=== PATIENT | male | born 1940 | race Caucasian/White ===

== ENCOUNTER → 2023-09-26 09:00 | Outpatient (REF) | payer MEDICARE, SELFPAY | LOC: HWRAD 09:00 | PROVIDERS: ATTENDING PHYSICIAN Internal Medicine | DX: M25.572 Pain in left ankle and joints of left foot (principal) | CPT/HCPCS: 73610 ==

== ENCOUNTER → 2023-10-22 07:55 | Outpatient (REF) | payer MEDICARE, SELFPAY | LOC: HWRAD 07:55 | PROVIDERS: ATTENDING PHYSICIAN Specialist; FAMILY PHYSICIAN Internal Medicine | DX: N20.0 Calculus of kidney (principal) | CPT/HCPCS: 74018 ==

== ENCOUNTER → 2023-11-21 10:32 | Outpatient (REF) | payer MEDICARE, SELFPAY | LOC: HWRAD 10:32 | PROVIDERS: ATTENDING PHYSICIAN Internal Medicine | DX: M48.062 Spinal stenosis, lumbar region with neurogenic claudication (principal) | CPT/HCPCS: 72110 ==

== ENCOUNTER → 2024-01-23 07:19 | Outpatient (REF) | payer MEDICARE, SELFPAY ==
[2024-01-23 09:08] LABS: % Basophils 0.9 % (0-2); % Eosinophils 2.2 % (0-6); % Immature Granulocytes 0.2 % (0-0.5); % Lymphocytes 20.4 % (20.5-51.1); % Monocytes 8.8 % (1.7-9.3); % Neutrophils 67.5 % (42.2-75.2); Absolute Basophils 0.1 10^3/uL (0-0.2); Absolute Eosinophils 0.1 10^3/uL (0-0.7); Absolute Lymphocytes 1.1 10^3/uL (1.2-3.4); Absolute Monocytes 0.5 10^3/uL (0.1-0.6); Absolute Neutrophils 3.8 10^3/uL (1.4-6.5); Hematocrit 42.6 % (39.0-52.0); Hemoglobin 13.7 g/dL (13.0-18.0); Mean Corp Hgb Conc. 32.2 g/dL (33.0-37.0); Mean Corpuscular Hgb 30.2 pg (27.0-31.0); Mean Corpuscular Volume 93.8 fL (80.0-94.0); Mean Platelet Volume 8.8 fL (7.4-10.4); Nucleated Red Blood Cells % 0 % (-); Platelet Count 188 10^3/uL (130-400); Red Blood Cell Count 4.54 10^6/uL (4.70-6.10); Red Cell Dist. Width 13.5 % (11.5-14.5); White Blood Cell Count 5.6 10^3/uL (4.8-10.8)
[2024-01-23 09:34] LABS: Glycohemoglobin (HgbA1c) 7.3 % (4.0-5.6)
[2024-01-23 10:49] LABS: ALT (SGPT) 17 U/L (0-50); AST (SGOT) 20 U/L (17-59); Albumin 3.5 g/dl (3.5-5.0); Alkaline Phosphatase 107 U/L (38-126); Blood Urea Nitrogen 18 mg/dl (9-20); Calcium 9.1 mg/dl (8.4-10.2); Carbon Dioxide 28 mmol/L (22-30); Chloride 103 mmol/L (98-107); Glucose 141 mg/dl (70-99); HDL Cholesterol 56 mg/dl; LDL Cholesterol, Calculated 62 mg/dl; Potassium 4.2 mmol/L (3.5-5.1); Sodium 136 mmol/L (135-145); Total Bilirubin 0.7 mg/dl (0.2-1.3); Total Cholesterol 128 mg/dl (50-199); Triglyceride 51 mg/dl (10-149); Very Low Density Lipoprotein 10 mg/dl (0-30); eGFR > 60.00
[2024-01-23 11:33] LABS: Microalbumin, Random Urine 0.8 mg/dl (0.6-1.7); Microalbumin/creatinine Ratio 4.4 mg/g
== END ==
LOC: HWLAB 07:19
PROVIDERS: ATTENDING PHYSICIAN Internal Medicine
DX: E11.9 Type 2 diabetes mellitus without complications (principal); E78.5 Hyperlipidemia, unspecified; K21.9 Gastro-esophageal reflux disease without esophagitis
CPT/HCPCS: 36415; 80053; 80061; 82043; 82570; 83036; 85025

== ENCOUNTER → 2024-05-20 09:43 | Outpatient (REF) | payer MEDICARE, SELFPAY ==
[2024-05-20 11:53] LABS: % Basophils 0.9 % (0-2); % Eosinophils 1.7 % (0-6); % Immature Granulocytes 0.3 % (0-0.5); % Lymphocytes 14.6 % (20.5-51.1); % Monocytes 9.9 % (1.7-9.3); % Neutrophils 72.6 % (42.2-75.2); Absolute Basophils 0.1 10^3/uL (0-0.2); Absolute Eosinophils 0.1 10^3/uL (0-0.7); Absolute Monocytes 0.7 10^3/uL (0.1-0.6); Absolute Neutrophils 4.8 10^3/uL (1.4-6.5); Hematocrit 42.7 % (39.0-52.0); Hemoglobin 14.4 g/dL (13.0-18.0); Mean Corp Hgb Conc. 33.7 g/dL (33.0-37.0); Mean Corpuscular Hgb 31.3 pg (27.0-31.0); Mean Corpuscular Volume 92.8 fL (80.0-94.0); Mean Platelet Volume 9.1 fL (7.4-10.4); Nucleated Red Blood Cells % 0 % (-); Platelet Count 202 10^3/uL (130-400); Red Cell Dist. Width 12.8 % (11.5-14.5); White Blood Cell Count 6.6 10^3/uL (4.8-10.8)
[2024-05-20 13:01] LABS: TSH Reflex To Free T4 2.12 uIU/ml (0.47-4.68)
== END ==
LOC: HWLAB 09:43
PROVIDERS: ATTENDING PHYSICIAN Internal Medicine
DX: R53.83 Other fatigue (principal)
CPT/HCPCS: 36415; 84443; 85025

== ENCOUNTER → 2024-07-14 06:49 | Outpatient (REF) | payer MEDICARE, SELFPAY ==
[2024-07-14 10:20] LABS: ALT (SGPT) 25 U/L (0-50); AST (SGOT) 25 U/L (17-59); Alkaline Phosphatase 103 U/L (38-126); Blood Urea Nitrogen 18 mg/dl (9-20); Calcium 9.4 mg/dl (8.4-10.2); Carbon Dioxide 29 mmol/L (22-30); Chloride 100 mmol/L (98-107); Glucose 163 mg/dl (70-99); HDL Cholesterol 65 mg/dl; LDL Cholesterol, Calculated 66 mg/dl; Potassium 4.7 mmol/L (3.5-5.1); Sodium 139 mmol/L (135-145); Total Bilirubin 0.7 mg/dl (0.2-1.3); Total Cholesterol 143 mg/dl (50-199); Total Protein 6.5 g/dl (6.3-8.2); Triglyceride 62 mg/dl (10-149); Very Low Density Lipoprotein 12 mg/dl (0-30); eGFR > 60.00
[2024-07-14 10:33] LABS: Glycohemoglobin (HgbA1c) 7.4 % (4.0-5.6)
== END ==
LOC: HWLAB 06:49
PROVIDERS: ATTENDING PHYSICIAN Internal Medicine
DX: E11.9 Type 2 diabetes mellitus without complications (principal); E78.5 Hyperlipidemia, unspecified
CPT/HCPCS: 36415; 80053; 80061; 83036

== ENCOUNTER → 2024-09-29 10:28 | Outpatient (REF) | payer MEDICARE, SELFPAY | LOC: HWRAD 10:28 | PROVIDERS: ATTENDING PHYSICIAN Specialist; FAMILY PHYSICIAN Internal Medicine | DX: N20.0 Calculus of kidney (principal) | CPT/HCPCS: 74018 ==

== ENCOUNTER → 2024-11-12 11:10 | Outpatient (REF) | payer MEDICARE, SELFPAY | LOC: HWRAD 11:10 | PROVIDERS: ATTENDING PHYSICIAN Family Medicine | DX: J41.1 Mucopurulent chronic bronchitis (principal) | CPT/HCPCS: 71046 ==

== ENCOUNTER → 2025-01-21 07:00 | Outpatient (REF) | payer MEDICARE, SELFPAY ==
[2025-01-21 09:32] LABS: % Basophils 1.1 % (0-2); % Eosinophils 3.4 % (0-6); % Immature Granulocytes 0.2 % (0-0.5); % Lymphocytes 19.9 % (20.5-51.1); % Monocytes 10.1 % (1.7-9.3); % Neutrophils 65.3 % (42.2-75.2); Absolute Basophils 0.1 10^3/uL (0-0.2); Absolute Eosinophils 0.2 10^3/uL (0-0.7); Absolute Lymphocytes 1.1 10^3/uL (1.2-3.4); Absolute Monocytes 0.6 10^3/uL (0.1-0.6); Absolute Neutrophils 3.7 10^3/uL (1.4-6.5); Hematocrit 43.7 % (39.0-52.0); Hemoglobin 14.3 g/dL (13.0-18.0); Mean Corp Hgb Conc. 32.7 g/dL (33.0-37.0); Mean Corpuscular Hgb 30.5 pg (27.0-31.0); Mean Corpuscular Volume 93.2 fL (80.0-94.0); Mean Platelet Volume 8.9 fL (7.4-10.4); Nucleated Red Blood Cells % 0 % (-); Platelet Count 192 10^3/uL (130-400); Red Blood Cell Count 4.69 10^6/uL (4.70-6.10); Red Cell Dist. Width 13.2 % (11.5-14.5); White Blood Cell Count 5.6 10^3/uL (4.8-10.8)
[2025-01-21 10:09] LABS: ALT (SGPT) 21 U/L (0-50); AST (SGOT) 20 U/L (17-59); Albumin 3.9 g/dl (3.5-5.0); Alkaline Phosphatase 105 U/L (38-126); Blood Urea Nitrogen 11 mg/dl (9-20); Calcium 9.3 mg/dl (8.4-10.2); Carbon Dioxide 29 mmol/L (22-30); Chloride 106 mmol/L (98-107); Glucose 170 mg/dl (70-99); HDL Cholesterol 59 mg/dl; LDL Cholesterol, Calculated 58 mg/dl; Potassium 4.6 mmol/L (3.5-5.1); Sodium 137 mmol/L (135-145); Total Bilirubin 0.7 mg/dl (0.2-1.3); Total Cholesterol 130 mg/dl (50-199); Total Protein 6.3 g/dl (6.3-8.2); Triglyceride 66 mg/dl (10-149); Very Low Density Lipoprotein 13 mg/dl (0-30); eGFR > 60.00
[2025-01-21 10:09] LABS: Glycohemoglobin (HgbA1c) 7.4 % (4.0-5.6)
[2025-01-21 10:42] LABS: Microalbumin, Random Urine 1.1 mg/dl (0.6-1.7); Microalbumin/creatinine Ratio 9.5 mg/g
== END ==
LOC: HWLAB 07:00
PROVIDERS: ATTENDING PHYSICIAN Internal Medicine
DX: E78.5 Hyperlipidemia, unspecified (principal); K21.9 Gastro-esophageal reflux disease without esophagitis; E11.9 Type 2 diabetes mellitus without complications
CPT/HCPCS: 36415; 80053; 80061; 82043; 82570; 83036; 85025

== ENCOUNTER → 2025-01-23 07:47 | Outpatient (REF) | payer MEDICARE, SELFPAY | LOC: RCS 07:47 | PROVIDERS: ATTENDING PHYSICIAN Student in an Organized Health Care Education/Training Program; FAMILY PHYSICIAN Internal Medicine | DX: I10 Essential (primary) hypertension (principal); R00.2 Palpitations | CPT/HCPCS: 93225; 93226 ==

== ENCOUNTER 2025-07-06 11:21 | Inpatient (IN) | payer MEDICARE, SELFPAY ==
[2025-07-06] VITALS (12 sets, daily range): BP systolic 81–177; BP diastolic 54–98; BMI 30.4
--- NOTE | 2025-07-06 10:20 | ED.GENMED ---
History of Present Illness
General
Chief Complaint: Chest Pain
Source: patient and spouse
Exam Limitations: none
Time Seen by Provider: 07/06/25 10:20
Nursing documentation reviewed up to this point in time: agreed with
History of Present Illness
History of Present Illness:
Note:
CHIEF COMPLAINT(S)
Chest pain.
HISTORY OF PRESENT ILLNESS
The patient is an 84-year-old male who presents with chest pain. The patient reports that the chest pain began suddenly. The exact activity during the onset of the pain was not specified. The patient denies the presence of pain at the time of the
evaluation. The chest pain does not radiate to the jaw, arm, or back and is not associated with sweating. The patient is uncertain if the pain worsens with physical activity. Currently, the patient is not taking aspirin and reports no current
medication usage. The patient sees a public defender but did not specify the reason for the follow-up or any heart conditions diagnosed.
MEDICATIONS
The patient mentioned being prescribed Carvedilol but did not confirm current usage.
PHYSICAL EXAM
General: Alert, no acute distress.
Skin: Warm, dry.
Head: Normocephalic, atraumatic.
Neck: Supple, trachea midline.
Eyes, Ears, Nose, Mouth, and Throat: Oral mucosa moist.
Cardiovascular: Normal peripheral perfusion, No edema.
Respiratory: Respirations are non-labored.
Gastrointestinal: Abdomen nondistended.
Back: Normal range of motion, Normal alignment.
Musculoskeletal: Normal ROM, normal strength.
Neurological: Alert and oriented to person, place, time, and situation, No focal neurological deficit observed.
Psychiatric: Cooperative, appropriate mood & affect.
PLAN
The plan includes administering aspirin as an initial treatment step.
DIFFERENTIAL DIAGNOSIS
The Differential Diagnosis includes, in no particular order and is not limited to:
1. Angina pectoris
2. Myocardial infarction
3. Gastroesophageal reflux disease
4. Pulmonary embolism
5. Costochondritis
6. Aortic dissection
7. Pericarditis
8. Pneumothorax
9. Anxiety-related chest pain
10. Musculoskeletal pain
EKG
My independent EKG interpretation is:
- Time of EK:05 a.m.
- Rhythm: Sinus tachycardia
- Heart Rate: 104 bpm
- ST segment changes: ST elevation in inferior leads
CARE-UPDATE
07/06/25 - 14:20
Patient was immediately alerted based on EKG findings and brought back to room 41. Administered aspirin, Brilinta, and heparin. Dr. Flores assessed the patient en route to the [facility]; pacer pads were applied.
Disposition:
SUMMARY OF ENCOUNTER
The patient, an 84-year-old male, was seen in the emergency department for sudden chest pain. During the assessment, an EKG revealed ST elevation in inferior leads, prompting the suspicion of an inferior myocardial infarction (KS). The patient was
immediately managed with antiplatelet and anticoagulant therapy. Given the high risk of myocardial infarction, a decision was made to admit the patient for emergent transfer to the cardiac catheterization lab for further intervention.
DISPOSITION
Admit to cardiac catheterization lab.
ASSESSMENT
- Suspected inferior myocardial infarction based on clinical presentation and EKG findings.
EMERGENCY TREATMENTS ADMINISTERED
- Aspirin
- Heparin
- Ticagrelor (Brilinta)
PLAN
The patient will be taken emergently to the [facility] for angiography and potential intervention.
INDEPENDENT REVIEW OF LABS AND INTERPRETATION OF TESTS
My independent EKG interpretation is sinus tachycardia with a heart rate of [address] elevation in the inferior leads.
MEDICAL DECISION MAKING
- Number and Complexity of Problems Addressed: Chronic conditions affecting care include potential coronary artery disease. Differential diagnosis includes angina pectoris, myocardial infarction, pulmonary embolism, aortic dissection, and
musculoskeletal pain among others.
- Data:
Category 1
My independent interpretation of the EKG revealed ST elevation in the inferior leads.
- Risk:
Antiplatelet and anticoagulation therapy were administrated due to high suspicion of myocardial infarction, indicating a risk of major adverse cardiovascular events.
DIAGNOSIS
- Inferior myocardial infarction (I21.19)
Past History
Past History
ED Past Medical History: Other (Diet controlled diabetes)
Social History
Tobacco: Former smoker
Alcohol: Occasional
Family History
Family History: Other (Father with a stroke)
Phy Exam
Physical Exam
Physical Exam:
.
Scores
Heart Score for Chest Pain Patients
STEMI patient?: Yes
Course
Orders/Labs/Results
Orders:
Orders
07/06/25 Lunch
1800 calorie (15 carb) Diabetic
At Your Request: Full Participation
Does patient need a safe tray?: No
07/06/25 10:02
EKG [Electrocardiogram (*1)] Urgent
Reason for Study: Chest Pain
07/06/25 10:03
EKG- Treatment ONCE
07/06/25 10:15
Complete Blood Count/With Diff Urgent
Comprehensive Metabolic Panel Urgent
INR [Prothrombin Time] Urgent
PTT Urgent
Troponin I Urgent
07/06/25 10:19
Ticagrelor [Brilinta] 180 mg .ROUTE .STK-MED ONE
07/06/25 10:20
Aspirin Chewable [Low Strength Aspirin] 324 mg .ROUTE .STK-MED ONE
Heparin 5,000 units .ROUTE .STK-MED ONE
07/06/25 11:03
Admit Patient As Directed
Co-Sign Provider:
Level of Care: Inpatient admission
Assign to:: IVU
Physician / Group: yogesh/mark
Diagnosis: inferior stemi
Reason for Hospitalization: cardiac cath
Expected length of stay greater than two midnights?: Yes
ELOS- Estimated Length of Stay in days: 2
I certify the patient meets the requirements for IP care: Yes
Code Status As Directed
Resuscitation Status: Full Code
VTE Contraindication Routine
VTE Mechanical Device Contraindication: Low Risk- LOS < 2 days
Pharmocologic Contraindication: Medical Contraindication
Risk assessment completed and pt is low risk: Yes
Acetaminophen [Tylenol] 650 mg PO Q4HPRN PRN
Activity As Directed
Activity Level: Out of Bed- Ad Rae
Activity Frequency: Ad Rae
[facility] Procedure As Directed
Cardiac Cath Procedure: cardiac catheterization
Notify MD As Directed
Notify physician if: immediately for chest pain or bleeding from access site(s)
Radial Artery Hemostasis Method As Directed
Instructions:: 3 mL out at 1 hour post placement of band
3 mL out at 1 1/2 hours post placement of band
3 mL out at 2 hours post placement of band
Off at 2 1/2 hours post placement of band
If any oozing or hemotoma occurs:: re-inflate band and call provider
Site Checks As Directed
Check access site for bleeding/hematoma: Yes
Comment: on arrival, Q15min x4, Q30min x2, Q1 hr x2, Q2 hr x2, Q4 hr or per
protocol
Vascular Checks As Directed
Location: distal to access site - pulse check
Frequency: Other
Comment: on arrival, Q15min x4, Q30min x2, Q1 hr x2, Q2 hr x2, Q4 hr or per protocol
Vital Signs As Directed
Frequency: Other
Additional Instructions:: on arrival, Q15min x4, Q30min x2, Q1 hr x2, Q2 hr x2, then Q4 hr or per unit
protocol
PRN Pain Medication Management As Directed
May give lesser potent ordered pain med per pt: Yes
preference::
Protocol:: Medication orders for pain may be administered in a
manner that supports deferring to patient preference
when the pt is:
- Requesting an ordered lesser potent pain medication.
Least to most potent pain medications are defined
as: acetaminophen < NSAID < tramadol < opioids
(morphine, oxycodone, hydromorphone).
- Requesting a lesser dose of the same medication IF
ORDERED.
- Requesting a less intrusive route of administration
if both routes are prescribed by the provider (PO <
IV).
07/06/25 11:05
Dextrose 50%-Water [Dextrose 50% Syringe] 12.5 grams IV [id number] PRN
Glucagon [GlucaGen] 1 mg IM PRN PRN
Bedside Glucose Monitoring As Directed
Frequency: AC&HS
Additional Instructions:: Change to q6h if pt on TPN, tube feeding or not eating
07/06/25 11:06
Heparin Protocol- PTT Orders As Directed
PTT per Heparin protocol: -Obtain CBC and baseline PTT - if not already collected.
-Obtain PTT 6 hours from start of infusion. Then, every 6 hours until 2 consecutive
PTT's are therapeutic. Then, PTT Daily.
-With each rate change, obtain PTT every 6 hours until 2 consecutive PTT's are
therapeutic. Then, PTT Daily.
Notify MD As Directed
Notify physician if: PTT is greater than or equal to 200.
07/06/25 11:15
0.9% Sodium Chloride 1000 ml [Nss] 1,000 ml IV PER PROTOCOL
Infusion rate in mL/kg/hr:: 1.5
Infusion rate in mL/hr:: 161
Duration of infusion (hours):: 3
Heparin 29013 Units/250 ml 25,000 units in 250 ml IV PER PROTOCOL
Weight to be used for heparin protocol in kilograms (kg):: 107.3
Protocol:: Cardiac Tx/Acute Coronary
PTT Goal Range to be used:: PTT 73 to 111 seconds
Order type:: Initial
INITIAL Infusion Dose (UNITS/KG/hr) & then follow protocol:: 12 units/kg/hr
Infusion Dose in UNITS/hr & then follow protocol (UNITS/hr):: 1,000
INFUSION RATE in mL/hr & then follow protocol (mL/hr):: 10
PTT less than or equal to 64 seconds:: Increase rate by 200 units/hr (+ 2 mL/hr)
PTT 64.1 to 72.9 seconds:: Increase rate by 100 units/hr (+ 1 mL/hr)
PTT 73 to 111 seconds:: Target Range. No change in rate.
PTT 111.1 to 130.9 seconds:: Decrease rate by 100 units/hr (- 1 mL/hr)
PTT 131 to 199.9 seconds:: HOLD for 1 hr. Then decrease rate by 200 units/hr (- 2 mL/hr)
PTT greater than or equal to 200 seconds:: HOLD for 2 hrs & Notify Provider. Then decrease by 200 units/hr (-
2 mL/hr)
Lab follow-up:: Each change, PTT q6h until 2 consecutive are therapeutic. Then PTT
daily.
07/06/25 11:16
Electrocardiogram (*1) Urgent
Reason for Study: Other
Other Reason for Exam: Post percutaneous coronary intervention
Comment: cbc
07/06/25 11:30
Insulin Aspart Corrective Mod [Novolog Flexpen-Moderate Resistance] See Protocol SC AC
07/06/25 16:00
Troponin I Q6H
07/06/25 18:00
Atorvastatin [Lipitor] 40 mg PO QPM
07/06/25 22:00
Troponin I Q6H
Famotidine [Pepcid] 40 mg PO HS
Tamsulosin [Flomax] 0.4 mg PO HS
07/07/25 04:00
Troponin I Q6H
07/07/25 06:00
Echo 2D MMode Color/Doppler Routine
Reason for Study: Inferior STEMI
Comment: Flores
Electrocardiogram (*1) IN AM
Reason for Study: CAD
Comment: cbc
Basic Metabolic Panel IN AM
Cardiovascular Evaluation IN AM
Complete Blood Count/No Diff IN AM
Glycohemoglobin (HgbA1c) IN AM
07/07/25 08:00
Aspirin Chewable [Low Strength Aspirin] 81 mg PO DAILY
Clopidogrel Bisulfate [Plavix] 600 mg PO ONCE ONE
07/08/25 06:00
Electrocardiogram (*1) IN AM
Reason for Study: CAD
Comment: cbc
Basic Metabolic Panel IN AM
Complete Blood Count/No Diff IN AM
Complete Blood Count/No Diff Q2D
Comment: Notify MD if platelet count is <130,000 or decreases by 50% from baseline
07/08/25 08:00
Clopidogrel Bisulfate [Plavix] 75 mg PO DAILY
07/10/25 06:00
Complete Blood Count/No Diff Q2D
Comment: Notify MD if platelet count is <130,000 or decreases by 50% from baseline
07/12/25 06:00
Complete Blood Count/No Diff Q2D
Comment: Notify MD if platelet count is <130,000 or decreases by 50% from baseline
07/14/25 06:00
Complete Blood Count/No Diff Q2D
Comment: Notify MD if platelet count is <130,000 or decreases by 50% from baseline
07/16/25 06:00
Complete Blood Count/No Diff Q2D
Comment: Notify MD if platelet count is <130,000 or decreases by 50% from baseline
07/18/25 06:00
Complete Blood Count/No Diff Q2D
Comment: Notify MD if platelet count is <130,000 or decreases by 50% from baseline
07/20/25 06:00
Complete Blood Count/No Diff Q2D
Comment: Notify MD if platelet count is <130,000 or decreases by 50% from baseline
07/22/25 06:00
Complete Blood Count/No Diff Q2D
Comment: Notify MD if platelet count is <130,000 or decreases by 50% from baseline
Abnormal Lab Results
07/06/25
10:15
Absolute Neuts (auto) 7.4 H 10^3/uL
(1.4-6.5)
Absolute Lymphs (auto) 0.9 L 10^3/uL
(1.2-3.4)
Neutrophils % 84.0 H %
(42.2-75.2)
Lymphocytes % 9.7 L %
(20.5-51.1)
Sodium 134 L mmol/L
(135-145)
Glucose 197 H mg/dl
(70-99)
Troponin I 0.130 H* ng/ml
07/06/25 10:15
07/06/25 10:15
Vital Signs
Initial and Last Documented VS:
Initial Vital Signs
Temp Resp Pulse Ox
97.5 F 20 94
07/06/25 11:23 07/06/25 11:23 07/06/25 11:23
Last Documented Vital Signs
Temp Resp Pulse Ox
97.5 F 20 94
07/06/25 11:23 07/06/25 11:23 07/06/25 11:23
*Pulse Oximetry
SaO2: 95
Oxygen Mode of Delivery: Room air
Patient hypoxic: no
*Critical Care Note
Total Time (30-74mins, 75-104mins- exclusive of procedures): 10
comment:
Critical care statement: A total of 10 minutes of critical care time was provided for this patient. This includes management of unstable vital signs, evaluation of the patient at bedside, reviewing the patient's pertinent medical records, discussion
with consultants, review of old EKGs and review of pertinent medical records. This time with separate from time utilized to perform the aforementioned documented procedures
ED Attending Note
-
Portions of this chart may have been created with voice recognition software.� Occasional wrong word or��sound alike� substitutions may have occurred due to the inherent limitations of voice recognition software.
Discharge Plan
Departure
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
Date of Disposition: 07/06/25
Time of Disposition: 10:20
Admit to: [facility]
Presentation/result/management discussed w/ accepting MD/DO: Mark cardiology
Patient with high blood pressure during this ER visit?: Yes
Condition: Fair
Discharge Problem:
ST elevation (STEMI) myocardial infarction
Interventions
Interventions:
*Nursing Disposition Last Done: 07/06/25 10:33
Discharge Date and Time
Discharge Date/Time: 07/06/25 10:33
[2025-07-06 10:23] LABS: Hematocrit 44.8 % (39.0-52.0); Hemoglobin 14.8 g/dL (13.0-18.0); Mean Corp Hgb Conc. 33.0 g/dL (33.0-37.0); Mean Corpuscular Volume 90.1 fL (80.0-94.0); Nucleated Red Blood Cells % 0 % (-); Platelet Count 201 10^3/uL (130-400); Red Cell Dist. Width 13.2 % (11.5-14.5)
[2025-07-06 10:35] LABS: INR 1.00; PT 13.5 Sec (11.4-14.6)
[2025-07-06 10:36] LABS: APTT 24.2 Sec (23.4-35.0)
--- NOTE | 2025-07-06 10:37 | HPS.HSE ---
Family Physician
-
Family Physician: Ana Laura Fox MD
CDY: Toni Salazar MD
Chief Complaint
-
chest pain
History of Present Illness
84 y/o, PMH sig for HTN, HLD, DM, Atrial tachycardia/inappropriate sinus tachycardia, intolerant of beta blockers due to orthostasis/hypotension. Significant FH CAD, CVA. Former tobacco and social alcohol.
Presented to ER with intermittent chest pain for 2 days, progressively worse this morning, 04/05. EKG with inferior ST elevations. Given aspirin 324mg, ticagrelor 180mg and heparin 5000u and brought emergently to [facility]. On arrival to lab, CP had
improved to 11/03.
Medical History
Past Medical History
Past Medical History: Reports HTN, Hypercholesterolemia, NIDDM and Other (Atrial tachycardia, Inappropriate Sinus Tachycardia, BPH, Kidney stones, hydrocele, obesity)
Past Surgical History: Reports Urological (TURP 2016) and Other (Umbilical hernia repair 2017, Hydrocelectomy 2010)
Social History
Tobacco: Former Smoker
Alcohol: Occasional (2-3x/weekly)
Drug: None
Personal:
Living: With Family
Employment: Retired
Family History
Family History: CAD and Other (CVA, Alzheimers/Dementia)
Allergies / Home Medications
Allergies reflects when Allergies were last updated in [employer].
Home Medications with original date entered in [employer]
Allergy/Medication List:
Allergies
Allergy/AdvReac Type Severity Reaction Status Date / Time
hayfever Allergy coughing;eyes Uncoded 07/05/17 06:47
burn
Home Medications
�Medication �Instructions �Recorded
atorvastatin 10 mg tablet 10 mg PO DAILY 07/06/25
carvedilol 3.125 mg tablet 3.125 mg PO BID 07/06/25
famotidine 40 mg tablet 40 mg PO HS 07/06/25
fluticasone propionate 50 2 spray intranasal DAILY 07/06/25
mcg/actuation nasal
spray,suspension
metformin 500 mg tablet 500 mg PO QPM 07/06/25
tamsulosin 0.4 mg capsule 0.4 mg PO HS 07/06/25
Pt not taking carvedilol d/t hypotension, held per PCP
Review of Systems
-
History Source: Patient
A 12 point ROS was completed and negative except as noted: Yes
Cardiac: Reports Chest Pain
Physical Exam
Vital Signs
PE deferred d/t urgent nature of cath
Physical Exam
General: Well Developed
Laboratory Results
-
07/06/25 10:15
07/06/25 10:15
Laboratory Tests
07/06/25
10:15
Troponin I 0.130 H*
PT 13.5 Sec (11.4-14.6) 07/06/25 10:15
INR 1.00 07/06/25 10:15
APTT 24.2 Sec (23.4-35.0) 07/06/25 10:15
Data Reviewed
-
Medical Tests (Nuc Med, Echo, EKG etc): Image Personally Visualized and interpreted, Report Reviewed by me and Discussed with Physician
Lab Data: Labs Reviewed by me
Old Records: Reviewed
Impression/Plan
-
PCP: Ana Laura Fox MD
CDY: Toni Salazar MD
84 y/o, PMH sig for HTN, HLD, DM, Atrial tachycardia/inappropriate sinus tachycardia, intolerant of beta blockers due to orthostasis/hypotension. Significant FH CAD, CVA. Former tobacco and social alcohol.
Presented to ER with intermittent chest pain for 2 days, progressively worse this morning, 04/05. EKG with inferior ST elevations. Given aspirin 324mg, ticagrelor 180mg and heparin 5000u and brought emergently to [facility]. On arrival to lab, CP had
improved to 11/03.
IMPRESSION/PLAN:
Inferior STEMI
LHC today
1st troponin 0.13- trend to peak
echocardiogram in AM
anticipate DAPT- await cath results
cardiac rehab
followup w/Dr. Salazar at d/c
HTN- not taking carvedilol d/t orthostasis/hypotension
monitor trends
HLD- check lipid profile
increase atorvastatin to 40mg
DM- hold metformin 48h post cath
elevated glucose on chemistry today
check HgbA1C, ISS for coverage
Atrial tachycardia/Inappropriate sinus tachycardia
orthostatic hypotension r/t beta blockers- has tried metoprolol, carvedilol in the past
currently asymptomatic and not taking anything right now per PCP
monitor trends
BPH
Kidney stones
obesity
[2025-07-06 10:40] LABS: ALT (SGPT) 21 U/L (0-50); AST (SGOT) 22 U/L (17-59); Albumin 4.3 g/dl (3.5-5.0); Alkaline Phosphatase 111 U/L (38-126); Blood Urea Nitrogen 13 mg/dl (9-20); Calcium 9.2 mg/dl (8.4-10.2); Carbon Dioxide 28 mmol/L (22-30); Chloride 100 mmol/L (98-107); Estimated Creatinine Clearance 93 ml/min; Glucose 197 mg/dl (70-99); Potassium 4.3 mmol/L (3.5-5.1); Sodium 134 mmol/L (135-145); Total Protein 6.8 g/dl (6.3-8.2); eGFR > 60.00
[2025-07-06 11:02] LABS: Troponin I 0.130 ng/ml
--- NOTE | 2025-07-06 11:11 | ITS.CL.CATH ---
[facility] - Catheterization
Cardiac Catheterization
Procedure Report:
CARDIAC CATHETERIZATION REPORT
Date of Procedure: 07/06/2025
Referring: Manoj Whitehead D.O.
INDICATION: Inferoposterior STEMI on EKG.
PROCEDURE:
1. Left heart catheterization
2. Coronary angiography.
3. Left ventriculography.
A total of 29 minutes of procedural/moderate sedation was utilized. An independent chief medical technologist was present to assist with and help manage the patient's level of consciousness and physiologic status.
ACCESS:
1. 6 Iranian right radial artery using a modified Seldinger technique.
CATHETERS:
1. 5 Iranian JR4.
2. 5 Iranian JL 3.5.
3. 5 Iranian angled pigtail.
HEMODYNAMIC DATA
Weight (kg): 107.0
AO (s/d/x, mmHg): 99/62/74
LV (s/x mmHg): 117/20
AV gradient (x, mmHg): 17
LEFT VENTRICULOGRAPHY: Performed in an ORDAZ projection. Normal size ventricle with hypokinesis of the inferior base but preserved global systolic function. Left ventricular ejection fraction is 60%. There is no mitral valve regurgitation.
There is no visualized aortic valve insufficiency. The aortic root, ascending aorta and visualized descending thoracic aorta appear normal.
CORONARY ANGIOGRAPHY
Dominance: Right.
Left Main: Normal size, bifurcating vessel. There is no coronary artery disease.
LAD: Normal size vessel giving rise to 2 diagonals. There are minor luminal irregularities throughout with dense calcification in the mid vessel.
Ramus: Congenitally absent.
Circumflex: Normal size, nondominant vessel giving rise to 1 obtuse marginal. There is no coronary artery disease.
RCA: Normal size, dominant vessel. There is a 30% lesion in the proximal vessel. There is a 50% lesion in the proximal margin of the RPDA. There is some very mild dye staining in the distal RCA as it becomes the RPDA. There is
suggestion of a possible right posterolateral branch that is not visualized, possibly occluded at the ostium, though this is inconsistent.
INTERVENTION(S)
None.
Closure Device: Vascular band.
Radiation (mGy): 516.73
DAP (cm2.Gy): 45.5338
Fluoroscopy time (minutes): 4.0
CONCLUSIONS
1. Right dominant circulation with dense external calcification of the mid LAD with luminal irregularities, a 30% lesion in the proximal RCA followed by a 50% lesion in the proximal margin of the RPDA. There is some mild dye staining in the distal
RCA as it becomes the RPDA suggesting a possible occluded right posterolateral branch.
2. Moderately elevated filling pressures (LVEDP = 20 mmHg at 107.0 kg).
3. Probably mild aortic valve stenosis.
4. The patient reports only mild chest discomfort and EKG changes appeared to improve throughout the diagnostic portion of the case. After a thoughtful and thorough discussion with colleagues, the decision was made to manage this patient medically
given no obviously occluded vessel and the questionable presence of an occluded right posterolateral branch. Based on the patient's V gram, the potential occluded territory is small and will have minimal functional impact. We did discuss the
possibility of wire probing with a workhorse wire to see if the vessel was thrombotically occluded, but ultimately concluded that the risk was inherently higher than any potential benefit.
RECOMMENDATIONS:
1. Expectant management after cardiac catheterization via right radial approach.
2. Limited weight bearing on the right wrist for one week.
3. Medical management with dual antiplatelet therapy for at least 12 months, followed by aspirin indefinitely.
4. OMT/GDMT as hemodynamics tolerate.
5. Heparin drip for at least 12 to 24 hours after troponin peak.
6. Echocardiogram ordered and pending.
7. Referral to cardiac rehab.
Copy to: Toni Salazar M.D., Ana Laura Fox M.D.
Nuno Flores DO, FACC, FACP
[2025-07-06] MEDS: NSS 1000 IV (12:00)
[2025-07-06] MEDS: HEPARIN 25000 UNITS/250 ML IV (12:38)
[2025-07-06 12:46] LABS: Glucose - Point of Care 167 mg/dl (70-99)
[2025-07-06] MEDS: NOVOLOG FLEXPEN-MODERATE RESISTANCE 1 UNITS SC ×2 (12:55→17:40)
[2025-07-06 16:44] LABS: Troponin I 23.100 ng/ml
[2025-07-06] MEDS: LIPITOR PO (17:01)
[2025-07-06 17:43] LABS: Glucose - Point of Care 150 mg/dl (70-99)
[2025-07-06 19:20] LABS: APTT 41.3 Sec (23.4-35.0)
[2025-07-06] MEDS: FLOMAX 0.4 MG PO (21:27)
[2025-07-06] MEDS: PEPCID 40 MG PO (21:27)
[2025-07-06 22:53] LABS: Glucose - Point of Care 187 mg/dl (70-99)
[2025-07-07] VITALS (7 sets, daily range): BP systolic 119–141; BP diastolic 73–102; BMI 31.2
[2025-07-07 01:44] LABS: Hematocrit 41.2 % (39.0-52.0); Hemoglobin 14.0 g/dL (13.0-18.0); Mean Corp Hgb Conc. 34.0 g/dL (33.0-37.0); Mean Corpuscular Volume 88.4 fL (80.0-94.0); Platelet Count 185 10^3/uL (130-400); Red Cell Dist. Width 13.2 % (11.5-14.5)
[2025-07-07 01:59] LABS: Blood Urea Nitrogen 14 mg/dl (9-20); Calcium 8.9 mg/dl (8.4-10.2); Carbon Dioxide 24 mmol/L (22-30); Chloride 105 mmol/L (98-107); Estimated Creatinine Clearance 124 ml/min; Glucose 150 mg/dl (70-99); HDL Cholesterol 68 mg/dl; LDL Cholesterol, Calculated 58 mg/dl; Potassium 4.1 mmol/L (3.5-5.1); Sodium 135 mmol/L (135-145); Very Low Density Lipoprotein 13 mg/dl (0-30); eGFR > 60.00
[2025-07-07 02:11] LABS: Troponin I 38.900 ng/ml
[2025-07-07 02:29] LABS: APTT 48.7 Sec (23.4-35.0)
--- NOTE | 2025-07-07 05:01 | PTCARENOTE ---
Pt NSR with PVCs on monitor, VSS. Pt denies pain or SOB. Heparin gtt adjusted per order. Rt wrist post cath site CDI. Pt independent in the room. Call thakkar within reach
[2025-07-07 06:31] LABS: Glycohemoglobin (HgbA1c) 7.7 % (4.0-5.9)
[2025-07-07 07:08] LABS: Magnesium 2.1 mg/dl (1.6-2.3)
--- NOTE | 2025-07-07 07:41 | W.PN.CD ---
Today's Communication / Plan
-
Continue heparin gtt while trending troponins Q6H.
DAPT.
Propanolol trial.
Increase atorvastatin to 20 mg daily. Goal LDL < 55.
Echocardiogram pending.
There is now a role for GLP-1 agonists.
Impression / Plan
-
Impression/Plan: 84 y/o male with HTN, HLD, NIDDM2 and atrial tachycardia/IST intolerant of beta blockers admitted with inferoposterior STEMI.
#CAD/Inferoposterior STEMI
-Acute.
-Cardiac catheterization showed EZEQUIEL III flow in all vessels, possible flush occlusion of a posterolateral branch with preserved systolic function and basal inferior hypokinesis.
-Given the preserved EF, resolution of chest pain and lack of obvious occluded vessel that is supplying limited myocardial territory, the decision was made to manage medically.
-Troponin up to 38.9. EKG shows inferior Q waves with resolving RYAN. Troponin Q6H.
-Continue heparin gtt until troponin has peaked and fallen.
-Medical management with heparin gtt, DAPT, high dose, high potency statin. Patient is intolerant of beta blockers [, but tolerating carvedilol?].
#HTN
-Chronic, stable.
-BP stable.
#HLD
-Chronic, stable.
-Total cholesterol = 139, LDL = 58, HDL = 68, Triglycerides = 65.
-Increase atorvastatin to 20 mg daily.
-Goal LDL < 55.
#NIDDM2
-Chronic, stable.
-HbA1c = 7.7%.
-Continue metformin.
-There is now a role for GLP-1 agonists.
#Atrial Tachycardia/IST
-Chronic stable.
-Patient reports intolerance of carvedilol and metoprolol, previously tolerated inderal (propanolol).
-The patient would benefit from beta blockade in the setting of MA, CAD. We will trial low dose propanolol and monitor response.
-If he is not tolerating propanolol, we will consider diltiazem or verapamil, possibly amiodarone.
Subjective/Interval History:
EKG shows inferior Q waves with normalizing RYAN.
Troponin up to 38.9.
Chest pain has completely resolved.
DATA:
Cardiac Catheterization, 07/06/2025:
CONCLUSIONS
1. Right dominant circulation with dense external calcification of the mid LAD with luminal irregularities, a 30% lesion in the proximal RCA followed by a 50% lesion in the proximal margin of the RPDA. There is some mild dye staining in the distal
RCA as it becomes the RPDA suggesting a possible occluded right posterolateral branch.
2. Moderately elevated filling pressures (LVEDP = 20 mmHg at 107.0 kg).
3. Probably mild aortic valve stenosis.
4. The patient reports only mild chest discomfort and EKG changes appeared to improve throughout the diagnostic portion of the case. After a thoughtful and thorough discussion with colleagues, the decision was made to manage this patient medically
given no obviously occluded vessel and the questionable presence of an occluded right posterolateral branch. Based on the patient's V gram, the potential occluded territory is small and will have minimal functional impact. We did discuss the
possibility of wire probing with a workhorse wire to see if the vessel was thrombotically occluded, but ultimately concluded that the risk was inherently higher than any potential benefit.
Physical Exam
Vital Signs/Labs
Vital Signs
Temp Pulse Resp BP Pulse Ox
36.4 C 96 18 127/73 97
07/07/25 02:31 07/07/25 07:00 07/07/25 02:31 07/07/25 02:31 07/07/25 02:31
07/05/25 07/06/25 07/07/25
11:59 11:59 11:59
Actual Weight 107.3 kg 104.1 kg
07/07/25 01:32
07/07/25 01:32
PT 13.5 Sec (11.4-14.6) 07/06/25 10:15
INR 1.00 07/06/25 10:15
APTT 48.7 Sec (23.4-35.0) H 07/07/25 01:32
Magnesium 2.1 mg/dl (1.6-2.3) 07/07/25 01:32
Triglycerides 65 mg/dl (10-149) 07/07/25 01:32
LDL Cholesterol, Calc 58 mg/dl 07/07/25 01:32
VLDL Cholesterol, Calc 13 mg/dl (0-30) 07/07/25 01:32
HDL Cholesterol 68 mg/dl 07/07/25 01:32
LAB Results
07/06/25 07/06/25 07/07/25
10:15 16:11 01:32
Troponin I 0.130 H* 23.100 H* D 38.900 H*
Physical Exam
Constitutional: No acute distress and Comfortable
EENT: Anicteric and Moist mucous membranes
Cardiovascular: Rhythm & rate is regular, Pedal edema is absent, JVD pressure is normal, S1S2 is normal and Murmur/rub/gallop absent
Respiratory: Respiratory effort normal, Lungs clear to auscul., Wheeze Absent, Crackles Absent and Rhonchi Absent
GI: Soft, Distention absent, Flat, Non tender, Normal bowel sounds and Distention present
Neuro/Psych: AO x 3
Data Reviewed
-
Date of Service: July 07, 2025
Medical Decision Making: Reviewed Test Results, Independent Historian Assessment and Test Interpretation
EKG: Tracing Personally Visualized and interpreted and Report Reviewed by me
Echo: Ordered by me
X-Ray/CT/US/MRI/NUC/PET: Image Personally Visualized and interpreted and Report Reviewed by me
Medical Tests (PFT, Pathology etc): Image Personally Visualized and interpreted and Report Reviewed by me
Labs: Labs Reviewed by me
Old Records: Reviewed
[2025-07-07 07:45] LABS: Glucose - Point of Care 153 mg/dl (70-99)
[2025-07-07] MEDS: NOVOLOG FLEXPEN-MODERATE RESISTANCE 1 UNITS SC ×3 (08:10→17:53)
[2025-07-07] MEDS: LOW STRENGTH ASPIRIN 81 MG PO (08:12)
[2025-07-07] MEDS: PLAVIX 600 MG PO (08:12)
[2025-07-07 08:53] LABS: APTT 60.0 Sec (23.4-35.0)
[2025-07-07 09:09] LABS: Troponin I 18.600 ng/ml
[2025-07-07] MEDS: HEPARIN 25000 UNITS/250 ML IV (09:37)
[2025-07-07 11:33] LABS: Glucose - Point of Care 182 mg/dl (70-99)
--- NOTE | 2025-07-07 11:55 | PTCARENOTE ---
Pt is AOx3, no complaints of pain or discomfort. SR on tele monitor, VSS. Independent OOB. Heparin gtt infusing per protocol. Call thakkar within reach.
[2025-07-07] MEDS: INDERAL 10 MG PO ×2 (12:49→21:50)
--- NOTE | 2025-07-07 13:38 | CM ---
spoke to pt in room, he is prev indep, lives with is in a 1 story home with 13 steps to enter. he denies any dc planning needs or dme's. plan is for dc to home when medically stable.
[2025-07-07 14:06] LABS: Glucose - Point of Care 152 mg/dl (70-99)
[2025-07-07] MEDS: LIPITOR 40 MG PO (17:07)
[2025-07-07 17:29] LABS: Glucose - Point of Care 169 mg/dl (70-99)
[2025-07-07] MEDS: FLOMAX 0.4 MG PO (21:50)
[2025-07-07] MEDS: PEPCID 40 MG PO (21:51)
[2025-07-07 22:46] LABS: Glucose - Point of Care 112 mg/dl (70-99)
[2025-07-08 05:12] VITALS: BP 145/79
[2025-07-08 05:15] VITALS: BMI 31.3
[2025-07-08 05:32] LABS: Hematocrit 42.0 % (39.0-52.0); Hemoglobin 14.0 g/dL (13.0-18.0); Mean Corp Hgb Conc. 33.3 g/dL (33.0-37.0); Mean Corpuscular Volume 91.1 fL (80.0-94.0); Platelet Count 179 10^3/uL (130-400); Red Cell Dist. Width 13.2 % (11.5-14.5)
[2025-07-08 05:50] LABS: Blood Urea Nitrogen 16 mg/dl (9-20); Calcium 8.8 mg/dl (8.4-10.2); Carbon Dioxide 24 mmol/L (22-30); Chloride 106 mmol/L (98-107); Estimated Creatinine Clearance 102 ml/min; Glucose 145 mg/dl (70-99); Potassium 4.4 mmol/L (3.5-5.1); Sodium 135 mmol/L (135-145); eGFR > 60.00
[2025-07-08] MEDS: PLAVIX 75 MG PO (07:36)
[2025-07-08] MEDS: LOW STRENGTH ASPIRIN 81 MG PO (07:36)
[2025-07-08] MEDS: INDERAL 10 MG PO (07:36)
[2025-07-08 07:37] VITALS: BP 138/87
[2025-07-08 07:39] LABS: Glucose - Point of Care 167 mg/dl (70-99)
[2025-07-08] MEDS: NOVOLOG FLEXPEN-MODERATE RESISTANCE 1 UNITS SC (07:39)
--- NOTE | 2025-07-08 07:46 | PTCARENOTE ---
The patient is aaox3. His vital signs are stable. NSR is noted on the monitor. His right wrist dressing is c/d/i. His is anxious and wants to go home. He is refusing to eat breakfast stating 'I'll get a better meal at home.'' I reviewed his morning
medications with him and he stated that 'prior to coming here, I wasn't taking anything and I felt okay.' I reminded him that he was having chest pain prior which brought him to the hospital. I educated him on his condition and how he should manage
his CAD when he goes home, including diet and medications. He said 'you really don't think people follow any of this stuff do you?' I told him he should follow all the recommendations given to prevent any more cardiac disease.
--- NOTE | 2025-07-08 10:51 | PTCARENOTE ---
The patient is refusing to take lisinopril. He stated that he was on that 3 months ago and his blood pressure would tank. He said his doctor took him off of it and he's not taking it.
--- NOTE | 2025-07-08 10:56 | W.PN.CD ---
Today's Communication / Plan
-
DC meds: ASA, Clopidogrel (x1 year), Atorvastatin 40mg, Propanolol
Cardiac rehab
I will see him in the office next Sunday
Impression / Plan
-
Impression/Plan: 84 y/o male with HTN, HLD, NIDDM2 and atrial tachycardia/IST intolerant of beta blockers admitted with inferoposterior STEMI.
#CAD/Inferoposterior STEMI
-Acute.
-Cardiac catheterization showed EZEQUIEL III flow in all vessels, possible flush occlusion of a posterolateral branch with preserved systolic function and basal inferior hypokinesis.
-Given the preserved EF, resolution of chest pain and lack of obvious occluded vessel that is supplying limited myocardial territory, the decision was made to manage medically.
-Troponin up to 38.9. EKG shows inferior Q waves with resolving RYAN.
-Medical management with heparin gtt (has completed 48h), DAPT, high dose, high potency statin, and beta donaldo
#HTN
-Chronic, stable.
-BP stable.
#HLD
-Chronic, stable.
-Total cholesterol = 139, LDL = 58, HDL = 68, Triglycerides = 65.
-Increase atorvastatin to 40 mg daily.
-Goal LDL < 55.
#NIDDM2
-Chronic, stable.
-HbA1c = 7.7%.
-Continue metformin.
-There is now a role for GLP-1 agonists.
#Atrial Tachycardia/IST
-Chronic stable.
-Patient reports intolerance of carvedilol and metoprolol, previously tolerated inderal (propanolol).
-The patient would benefit from beta blockade in the setting of AR, CAD. We will trial low dose propanolol and monitor response.
-If he is not tolerating propanolol, we will consider diltiazem or verapamil, possibly amiodarone.
Subjective/Interval History:
Asymptomatic. No significant ectopy on telemetry.
DATA:
Cardiac Catheterization, 07/06/2025:
CONCLUSIONS
1. Right dominant circulation with dense external calcification of the mid LAD with luminal irregularities, a 30% lesion in the proximal RCA followed by a 50% lesion in the proximal margin of the RPDA. There is some mild dye staining in the distal
RCA as it becomes the RPDA suggesting a possible occluded right posterolateral branch.
2. Moderately elevated filling pressures (LVEDP = 20 mmHg at 107.0 kg).
3. Probably mild aortic valve stenosis.
4. The patient reports only mild chest discomfort and EKG changes appeared to improve throughout the diagnostic portion of the case. After a thoughtful and thorough discussion with colleagues, the decision was made to manage this patient medically
given no obviously occluded vessel and the questionable presence of an occluded right posterolateral branch. Based on the patient's V gram, the potential occluded territory is small and will have minimal functional impact. We did discuss the
possibility of wire probing with a workhorse wire to see if the vessel was thrombotically occluded, but ultimately concluded that the risk was inherently higher than any potential benefit.
Physical Exam
Vital Signs/Labs
Vital Signs
Temp Pulse Resp BP Pulse Ox
97.3 F 97 20 138/87 96
07/08/25 07:37 07/08/25 07:45 07/08/25 07:37 07/08/25 07:37 07/08/25 07:37
07/07/25 07/08/25 07/09/25
06:59 06:59 06:59
Actual Weight 229 lb 8.019 oz 230 lb 13.184 oz
07/08/25 05:11
07/08/25 05:11
PT 13.5 Sec (11.4-14.6) 07/06/25 10:15
INR 1.00 07/06/25 10:15
APTT Cancelled 07/07/25 15:30
Magnesium 2.1 mg/dl (1.6-2.3) 07/07/25 01:32
Triglycerides 65 mg/dl (10-149) 07/07/25 01:32
LDL Cholesterol, Calc 58 mg/dl 07/07/25 01:32
VLDL Cholesterol, Calc 13 mg/dl (0-30) 07/07/25 01:32
HDL Cholesterol 68 mg/dl 07/07/25 01:32
LAB Results
07/06/25 07/06/25 07/07/25
10:15 16:11 01:32
Troponin I 0.130 H* 23.100 H* D 38.900 H*
07/07/25
08:24
Troponin I 18.600 H* D
Physical Exam
Constitutional: No acute distress and Comfortable
Cardiovascular: Rhythm & rate is regular, Pedal edema is absent, S1S2 is normal and Murmur/rub/gallop absent
Respiratory: Respiratory effort normal and Lungs clear to auscul.
Neuro/Psych: AO x 3
Data Reviewed
-
Date of Service: July 08, 2025
Medical Decision Making: Reviewed Test Results, Independent Historian Assessment, Test Interpretation and Review of Case with other Provider
EKG: Tracing Personally Visualized and interpreted
Echo: Report Reviewed by me
Labs: Labs Reviewed by me
[2025-07-08 11:11] VITALS: BP 130/80
--- NOTE | 2025-07-08 11:56 | W.DS.TRANS ---
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
-
Discharge Instructions:
Discharge Diagnosis/Procedures Inferior STEMI, s/p cardiac catheterization
Diet Low Cholesterol,Diabetic, Carb Controlled
Driving Restrictions No driving for 24 hours
Other Services Cardiac Rehab
Instructions:
Stand-Alone Forms: DC Instructions- Cath/EP Lab
Changes to Home Medications: Yes
Discharge Medications:
DC Medications w/original date entered in [facility]
famotidine 40 mg tablet 40 mg PO HS 07/06/25
fluticasone propionate 50 mcg/actuation nasal spray,suspension 2 spray intranasal DAILY 07/06/25
metformin 500 mg tablet 500 mg PO QPM 07/06/25
tamsulosin 0.4 mg capsule 0.4 mg PO HS 07/06/25
aspirin 81 mg chewable tablet 81 mg PO DAILY #1 tab 07/08/25
atorvastatin 40 mg tablet 40 mg PO QPM #30 tabs 07/08/25
clopidogrel 75 mg tablet 75 mg PO DAILY #30 tabs 07/08/25
propranolol 10 mg tablet 10 mg PO BID #60 tabs 07/08/25
Home Medication Changes
NEW: aspirin, clopidogrel, propranolol
DOSE INCREASE: atorvastatin
Pending Results: No
== END 2025-07-08 11:47 | disposition home or self-care (01) | DRG 281 ==
LOC: IVU 11:21
PROVIDERS: Nurse Practitioner; Urology; ADMITTING PHYSICIAN Internal Medicine Cardiovascular Disease; EMERGENCY PHYSICIAN Emergency Medicine
PROC: 4A023N7 Measurement of Cardiac Sampling and Pressure, Left Heart, Percutaneous Approach (ICD-10-PCS; 2025-07-06)
PROC: B2111ZZ Fluoroscopy of Multiple Coronary Arteries using Low Osmolar Contrast (ICD-10-PCS; 2025-07-06)
PROC: B2151ZZ Fluoroscopy of Left Heart using Low Osmolar Contrast (ICD-10-PCS; 2025-07-06)
DX: I21.19 ST elevation (STEMI) myocardial infarction involving other coronary artery of inferior wall (principal); I47.20 Ventricular tachycardia, unspecified; Z87.891 Personal history of nicotine dependence; I25.10 Atherosclerotic heart disease of native coronary artery without angina pectoris; E11.65 Type 2 diabetes mellitus with hyperglycemia; E66.9 Obesity, unspecified; Z68.31 Body mass index [BMI] 31.0-31.9, adult; I10 Essential (primary) hypertension; I49.3 Ventricular premature depolarization; Z79.02 Long term (current) use of antithrombotics/antiplatelets; Z79.82 Long term (current) use of aspirin; Z82.3 Family history of stroke; Z82.49 Family history of ischemic heart disease and other diseases of the circulatory system
CPT/HCPCS: 80048; 80053; 80061; 82962; 83036; 83735; 84484; 85025; 85027; 85610; 85730; 93005; 93306; 93458; 99152; 99153; 99285; C1769; C1894; Q9967